=== PATIENT | female | born 1990 | race Caucasian/White ===

== ENCOUNTER 2018-03-23 04:09 | Inpatient (IN) | payer OTHER ==
[~2018-03-23] VITALS: Ht 154.9 cm; Wt 86.2 kg
[~2018-03-23 04:09] MED LIST: PREN1TAB80 PO
[2018-03-23] MEDS ORDERED: LIDOCAINE 1% VIAL ONE (04:29)
[2018-03-23] MEDS ORDERED: LACTATED RINGERS 2,000 ML ONE (04:29)
[2018-03-23] MEDS ORDERED: WATER ONE (04:29)
[2018-03-23] MEDS ORDERED: LR/PITOCIN 1,000 ML IV ONE (04:30)
[2018-03-23] MEDS ORDERED: AMPICILLIN SODIUM ONE (04:38)
[2018-03-23] MEDS ORDERED: SUBLIMAZE ONE (04:39)
[2018-03-23] MEDS ORDERED: NS 100ML 100 ML IV ONE (04:40)
[2018-03-23] MEDS ORDERED: BICITRA PO ONE (05:00)
[2018-03-23] MEDS ORDERED: PHENERGAN IV PRN (05:00)
[2018-03-23] MEDS ORDERED: BENADRYL IV PRN (05:00)
[2018-03-23] MEDS ORDERED: LACTATED RINGERS 1,000 ML IV SCH (05:00)
[2018-03-23] MEDS ORDERED: DEMEROL IV PRN (05:00)
[2018-03-23] MEDS ORDERED: AMPICILLIN SODIUM IV ONE (05:00)
[2018-03-23] MEDS ORDERED: LIDOCAINE 1% VIAL SQ PRN (05:00)
[2018-03-23] MEDS ORDERED: SUBLIMAZE IV PRN (05:00)
[2018-03-23] MEDS ORDERED: PITOCIN ONE (05:03)
--- NOTE | 2018-03-23 05:17 | PCM.HP ---
OB - Chief Complaint & HPI Date of Admission: Date of Admission: Mar 23, 2018 at 04:40 Diagnosis Rupture of membranes Chief Complaint/History : 4 Para: 1 EGA: 38w2d Reason for admission: active labor, rupture of membranes Admission Nurse Assessment Rev: Yes OB - History Hx of Present Care: Good Care (saw Dr. Nino for prenatalcare, we do not have records at this time) Ultrasounds: Normal mid trimester US Obstetrical Complications: None Medical Complications: None Other Concerns: She is Rh negative. Past Family/Social History * Past Medical, Surgical, Family and Obstetric Histories reviewed from chart. Blood Type: O- Rubella: unknown (She was GBS positive in a prior , but is unsure of her current status) RPR/VDRL: Unknown GBS Status: Unknown HBsAG: Unknown OB - Admission Exam Physical Exam Vitals: ABEL: 169/87 HR: 81 SO2: 93 Allergies Coded Allergies Type Severity Reaction Last Updated Verified morphine Allergy Mild GETS RASH 03/29/17 Yes HEENT: Fontanelles Normal, Nasal Mucosa Normal, Eyes non-injected, Oropharynx Normal, PERRLA, Moist Membranes Lungs: Clear, Equal Abdomen: Gravid, Non tender, Soft Extremities: Normal Reflexes: Normal Cervical Dilatation: 10cm Effacement: Other Station: +1 Membranes: Ruptured Amniotic Fluid: Clear Heart Rate: 130's Accelerations: No Accelerations Decelerations: No Decelerations Short Term Variability: Present Retirement Variability: Average (6-25) Contractions on Admission: < 5 Minutes Apart Intensity: Firm Presentation: Cephalic OB - Assessment/Plan Assessment Assessment: active labor Plan Plan: Expectant Management DAO KNIGHT MD Mar 23, 2018 05:17
[2018-03-23 05:30] LABS: HEMOGLOBIN 12.5 g/dL (12.0-15.0); MEAN CELL HGB 31.8 pg (26-34); MEAN CELL HGB CONCENTRATION 33.3 g/dL (33-37); MEAN CORP VOLUME 95.4 fL (78-100); MEAN PLATELET VOLUME 11.6 fL (7.8-11.0); RED CELL DISTRIBUTION WIDTH 13.5 % (11.5-14.5); WHITE BLOOD CELL 12.8 10^3/uL (4.5-11.0)
[2018-03-23] MEDS ORDERED: DERMOPLAST SPRAY TP PRN (05:30)
[2018-03-23] MEDS ORDERED: LR/PITOCIN 500 ML IV ONE ×2 (05:30)
[2018-03-23] MEDS ORDERED: LANOLIN HYDROUS TP PRN (05:30)
[2018-03-23] MEDS ORDERED: MYLANTA PO PRN (05:30)
[2018-03-23] MEDS ORDERED: TYLENOL PO PRN (05:30)
[2018-03-23] MEDS ORDERED: TUCKS TP PRN (05:30)
--- NOTE | 2018-03-23 06:20 | PRM.DELNOT ---
Delivery Summary Delivery: Spont. Vaginal Delivery EBL: 300 Scores: 8/9 Sex of : Male Weight (Grams): 3286 Presentation: Vertex Assessment/Plan Assessment/Plan Patient had uncomplicated vaginal delivery, will proceed with routine care. DAO KNIGHT MD Mar 23, 2018 06:20
[2018-03-23] MEDS: AMPICILLIN IV SCH ×3 (08:00→16:00)
[2018-03-23] MEDS ORDERED: DERMOPLAST SPRAY TP ONE (08:44)
[2018-03-23] MEDS ORDERED: MOTRIN ONE ×2 (08:44→16:40)
[2018-03-23] MEDS ORDERED: TUCKS ONE (08:44)
[2018-03-23] MEDS: MOTRIN PO PRN ×2 (08:52→16:44)
[2018-03-23] MEDS ORDERED: NORCO 5MG PO ONE ×2 (12:13→20:02)
[2018-03-23] MEDS: NORCO 5MG PO PRN ×2 (12:18→20:07)
[2018-03-23] MEDS ORDERED: COLACE PO SCH (21:00)
[2018-03-24] MEDS ORDERED: MOTRIN ONE ×3 (02:59→16:42)
[2018-03-24] MEDS: MOTRIN PO PRN ×3 (03:02→16:46)
[2018-03-24 05:15] LABS: BASOPHIL % 0.2 % (0.0-0.2); EOSINOPHIL # 0.3 10^3/uL (0.0-0.2); HEMOGLOBIN 11.2 g/dL (12.0-15.0); LYMPHOCYTES # 2.7 10^3/uL (1.0-4.8); LYMPHOCYTES % 20.7 % (24.0-44.0); MEAN CELL HGB 31.7 pg (26-34); MEAN CELL HGB CONCENTRATION 32.3 g/dL (33-37); MEAN CORP VOLUME 98.3 fL (78-100); MEAN PLATELET VOLUME 11.8 fL (7.8-11.0); MONOCYTES # 1.3 10^3/uL (0.3-0.8); MONOCYTES % 9.5 % (5.0-12.0); NEUTROPHIL # 8.9 10^3/uL (1.8-7.7); NEUTROPHILS % 67.4 % (41.0-85.0); RED CELL DISTRIBUTION WIDTH 13.7 % (11.5-14.5); WHITE BLOOD CELL 13.2 10^3/uL (4.5-11.0)
--- NOTE | 2018-03-24 08:57 | PRM.PN ---
Subjective/Objective S/P: General: No Complaints Chest: Clear Heart: RRR Abdomen: Uterus Firm/Non-Tender incision: N/A Urine Output: Adequate Extremities: Neg Edema/Neg Homans Vital Signs BP: 117/75 P:76 RR:18 T:98.7 Allergies Coded Allergies Type Severity Reaction Last Updated Verified morphine Allergy Mild GETS RASH 03/29/17 Yes Assessment/Plan Assessment/Plan 27yo PPD1 s/p , doing well. Will continue routine postpatum care, with planned discharge for this afternoon if she is GBS negative. Problems: (1) Vaginal delivery Status: Acute ICD Code: O80 - Encounter for full-term uncomplicated delivery SNOMED: [id number] DAO KNIGHT MD Mar 24, 2018 08:57
[2018-03-24] MEDS ORDERED: IBUP-1131 PO (09:02)
[2018-03-24] MEDS ORDERED: FERR325T15 PO (09:02)
--- NOTE | 2018-03-24 09:03 | PRM.DC ---
OB Discharge Summary Discharge Summary Discharge Diagnosis: Status Post Vitals BP: 117/75 P: 76 RR: 18 T: 98.7 Complications: No Complications Medications: Motrin, Fe Discharge Disposition: Stable Discharge Instructions: Pelvic Rest x 6 Weeks, Clinic F/U 1-2 Weeks, Regular Diet, Regular Activity, Meds as Prescribed, Call for Problems DAO KNIGHT MD Mar 24, 2018 09:03
[2018-03-24] MEDS ORDERED: NORCO 5MG PO ONE (16:42)
[2018-03-24] MEDS: NORCO 5MG PO PRN (16:45)
[2018-03-24] MEDS ORDERED: M-M-R II VACCINE WITH DILUENT SQ ONE ×3 (19:00→19:03)
== END 2018-03-24 20:00 | disposition home or self-care (01) | DRG 560 ==
LOC: ATP 04:09 → LND 04:22 → OBSVTOIN 04:40
PROVIDERS: ADMIT Obstetrics & Gynecology; ATTEND Obstetrics & Gynecology
PROC: 10E0XZZ Delivery of Products of Conception, External Approach (ICD-10-PCS; principal; 2018-03-23)
PROC: 3E0R3BZ Introduction of Anesthetic Agent into Spinal Canal, Percutaneous Approach (ICD-10-PCS; 2018-03-23)
PROC: 00HU33Z Insertion of Infusion Device into Spinal Canal, Percutaneous Approach (ICD-10-PCS; 2018-03-23)
DX: O80 Encounter for full-term uncomplicated delivery (principal); Z37.0 Single live birth; Z3A.38 38 weeks gestation of pregnancy; Z88.5 Allergy status to narcotic agent
CPT/HCPCS: 36415; 59025; 59400; 85025; 85027; 86318; 86870; 86900; G0378; J0290; J2001; J2590; J3010; J7050; J7120; 90707

== ENCOUNTER 2019-06-04 13:13 | Emergency (ER) | payer OTHER ==
[~2019-06-04] VITALS: Ht 154.9 cm; Wt 74.8 kg
[~2019-06-04 13:13] MED LIST changes: +FERR325T15 PO; +IBUP-1131 PO
[2019-06-04 13:22] VITALS: BP 133/84
[2019-06-04 13:38] VITALS: BP 133/84
--- NOTE | 2019-06-04 13:40 | NUR ---
STREP THROAT SWAB OBTAINED AND SENT TO LAB.
--- NOTE | 2019-06-04 13:43 | ER.PDOC ---
General Chief Complaint: Sore Throat Stated Complaint: POSSIBLE STREP Time seen by MD: 13:35 Source: patient Exam Limitations: no limitations History of Present Illness Initial Comments Started today with fever, sore throat, cough with purulent expectoration Timing/Duration: abrupt Severity: moderate Associated Symptoms: fever/chills, runny nose, sinus pain/drainage, sore throat, hoarseness, productive cough Worsen By: deep breathing Allergies: Coded Allergies: morphine (Verified Allergy, Mild, GETS RASH, 03/29/17) MORPHINE GIVEN ON PREVIOUS SHIFT, RASH NOTED AT IV SITE; TESTED IN NEW IV SITE, SAME REACTION. Home Meds Active Scripts Ferrous Sulfate (FERROUS SULFATE) 325 Mg Tablet, 1 TAB PO DAILY for 30 Days, #30 TAB 3 Refills Prov:DAO KNGIHT MD 03/24/18 Ibuprofen (IBUPROFEN) 800 Mg Tablet, 800 MG PO Q6HR PRN for PAIN for 30 Days, #60 TAB Prov:DAO KNIGHT MD 03/24/18 Reported Medications Vit W-Ca,Fe,FA(<1 mg) ( Formula) 1 Each Tablet, 1 EACH PO DAILY, TABLET 03/29/17 Constitutional: chills, fever EENTM: see HPI Respiratory: see HPI All Other Systems: Reviewed and Negative Past Medical History Medical History: no pertinent history Surgical History: no surgical history LMP (females 10-50): 3 weeks Social History Smoking: cigarettes, less than 1 pack/day Alcohol Use: none Drug Use: none Physical Exam General Appearance: alert, no distress Eye: eyes nml inspection, lids & conjunct. nml, PERRL, no nystagmus Ear: ear nml Nose: nose nml Throat: pharynx nml, airway nml Neck: nml inspection, supple Respiratory: rhonchi (scattered) Abdomen: non-tender, no organomegaly CVS: reg rate & rhythm, heart sounds nml Skin: color nml, no rash, warm/dry Extremities: non-tender, nml ROM, no pedal edema NEURO/PSYCH: oriented x 3, CN's nml as tested, motor nml, sensation nml, mood/affect nml Results/Orders Results/Orders Orders - FLORY CHAVEZ MD Strep Screen (06/04/19 13:22) Vital Signs Date Time Temp Pulse Resp B/P (MAP) Pulse Ox O2 Delivery O2 Flow Rate FiO2 06/04/19 13:38 98.3 73 16 133/84 (100) 96 Room Air 06/04/19 13:22 98.3 73 16 96 Room Air 06/04/19 13:22 98.3 73 16 Laboratory Tests Test 06/04/19 13:30 Group A Streptococcus Screen NEGATIVE (NEGATIVE) Departure Time of Disposition: 13:56 Disposition: 01 HOME, SELF-CARE Impression: Primary Impression: Acute sinusitis Condition: Stable Patient Instructions: Sinusitis, [id number] Referrals: PCP,UNKNOWN (PCP) PRIMARY CARE PROVIDER Duration or Time Spent with Pa: 15 FLORY CHAVEZ MD Jun 04, 2019 13:43
--- NOTE | 2019-06-04 14:05 | NUR ---
DISMISSAL PT DISCHARGED IN STABLE CONDITION.
== END 2019-06-04 14:05 | disposition home or self-care (01) ==
LOC: ER 13:13
DX: J01.90 Acute sinusitis, unspecified (principal); F17.210 Nicotine dependence, cigarettes, uncomplicated; Z88.5 Allergy status to narcotic agent; Z79.899 Other long term (current) drug therapy
CPT/HCPCS: 87070; 87880; 99284

== ENCOUNTER 2020-02-26 11:32 | Emergency (ER) | payer OTHER ==
[~2020-02-26] VITALS: Ht 152.4 cm; Wt 70.8 kg
[2020-02-26 11:46] VITALS: BP 141/65
[2020-02-26 11:49] VITALS: BP 141/65
--- NOTE | 2020-02-26 11:49 | NUR ---
ARRIVAL PATIENT ARRIVED TO ED[facility] AMBULATORY,, C/O OF FEVER AND SORE THROAT THAT STARTED TODAY, DID TAKE TYLENOL CREDIT COLLECTIONS REP, WAS ALSO TESTED WITHIN THE LAST MONTH FOR COVID-19 AND HAD A NEGATIVE RESULT, WAS TOLD TODAY SHE NEEDED TO COME TO THE ED FOR EVAL BEFORE GOING BACK TO WORK. PATIENT DENIES SHORTNESS OF BREATH, BODY ACHES, OR NAUSEA AND VOMITING. DOCTOR MIKHAIL NOTIFIED OF PATIENTS ARRIVAL.
[2020-02-26 12:28] VITALS: BP 119/61
--- NOTE | 2020-02-26 12:38 | ER.PDOC ---
General Chief Complaint: Sore Throat Stated Complaint: SORE THROAT/FEVER Time seen by MD: 12:35 Source: patient Exam Limitations: no limitations History of Present Illness Initial Comments Fever and sore throat today. No cough or SOB. Timing/Duration: gradual Associated Symptoms: fever/chills, mod sore throat Severity: moderate Allergies: Coded Allergies: morphine (Verified Allergy, Mild, GETS RASH, 03/29/17) MORPHINE GIVEN ON PREVIOUS SHIFT, RASH NOTED AT IV SITE; TESTED IN NEW IV SITE, SAME REACTION. Home Meds Active Scripts Ferrous Sulfate (FERROUS SULFATE) 325 Mg Tablet, 1 TAB PO DAILY for 30 Days, #30 TAB 3 Refills Prov:DAO KNIGHT MD 03/24/18 Ibuprofen (IBUPROFEN) 800 Mg Tablet, 800 MG PO Q6HR PRN for PAIN for 30 Days, #60 TAB Prov:DAO KNIGHT MD 03/24/18 Reported Medications Vit W-Ca,Fe,FA(<1 mg) ( Formula) 1 Each Tablet, 1 EACH PO DAILY, TABLET 03/29/17 Past Medical History Medical History: no pertinent history Surgical History: no surgical history Social History Alcohol Use: none Drug Use: none Constitutional: see HPI Mouth: no symptoms reported Throat: see HPI Respiratory: no symptoms reported Cardiovascular: no symptoms reported Gastrointestinal: no symptoms reported Musculoskeletal: no symptoms reported All Other Systems: Reviewed and Negative Physical Exam General Appearance: alert, no distress Mouth: lips, gums nml, no drooling, no thrush, membranes nml Throat: pharyngeal erythema, tonsillar exudate, tonsillar swelling Respiratory: no resp. distress, lungs clear CVS: reg. rate & rhythm, heart sounds nml Abdomen: non-tender, no organomegaly Extremities: non-tender, ROM nml Skin Exam: Normal Color, Warm/Dry NEURO/PSYCH: oriented X3, mood/effect nml Results/Orders Results/Orders Orders - DIONE ELIZONDO MD Strep Screen (02/26/20 11:53) Influenza A&B (02/26/20 11:53) Vital Signs Date Time Temp Pulse Resp B/P (MAP) Pulse Ox O2 Delivery O2 Flow Rate FiO2 02/26/20 12:28 98.5 83 18 99 Room Air 02/26/20 11:49 98.5 79 18 99 Room Air 02/26/20 11:46 98.5 79 18 02/26/20 11:46 98.5 79 18 99 Laboratory Tests Test 02/26/20 11:40 Influenza Type A Antigen NEGATIVE (NEG) Influenza B Immunofluorescence NEGATIVE (NEG) Group A Streptococcus Screen NEGATIVE (NEGATIVE) Departure Time of Disposition: 12:36 Disposition: 01 HOME, SELF-CARE Impression: Primary Impression: Acute tonsillitis Qualified Codes: J03.90 - Acute tonsillitis, unspecified Condition: Stable Referrals: PCP,UNKNOWN (PCP) PRIMARY CARE PROVIDER Additional Instructions: Amoxil Ibuprofen Chloraseptic spray OTC as needed for throat pain F/U with your PCP in 1 week Return to ED if worsening symptoms or concerns Duration or Time Spent with Pa: 20 min DIONE ELIZONDO MD Feb 26, 2020 12:38
== END 2020-02-26 12:41 | disposition home or self-care (01) ==
LOC: ER 11:32
DX: J03.90 Acute tonsillitis, unspecified (principal); Z88.5 Allergy status to narcotic agent; Z79.1 Long term (current) use of non-steroidal anti-inflammatories (NSAID)
CPT/HCPCS: 87070; 87804; 87880; 99283

== ENCOUNTER 2021-03-29 15:32 | Emergency (ER) | payer OTHER ==
[~2021-03-29] VITALS: Ht 152.4 cm; Wt 72.6 kg
[2021-03-29 15:42] VITALS: BP 136/84
--- NOTE | 2021-03-29 15:47 | NUR ---
ARRIVAL PATIENT ARRIVED TO ED[facility] AMBULATORY, C/O RIB,CHEST, AND NECK PAIN FOR THE PAST 3 DAYS, DID TAKE TYLENOL AND IBUPROFEN BOOKING AGENT AND IT WAS SUGGESTED PATIENT COME TO THE ED FOR EVAL, DOCTOR MIKHAIL NOTIFIED OF PATIENT'S ARRIVAL.
[2021-03-29] MEDS ORDERED: TORADOL IM STA (16:06)
[2021-03-29] MEDS ORDERED: TORADOL ONE (16:15)
[2021-03-29 16:18] LABS: BASOPHIL % 0.4 % (0.0-0.2); EOSINOPHIL # 0.3 10^3/uL (0.0-0.2); EOSINOPHIL % 2.9 % (0.0-5.0); LYMPHOCYTES # 2.46 10^3/uL1 (1.0-4.8); LYMPHOCYTES % 24.4 % (24.0-44.0); MEAN CORP HGB 31.8 pg (26-34); MONOCYTES # 0.6 10^3/uL (0.3-0.8); MONOCYTES % 5.5 % (5.0-12.0); NEUTROPHIL # 6.7 10^3/uL (1.8-7.7); NEUTROPHILS % 66.5 % (41.0-85.0); PLATELET COUNT 321 10^3/uL (150-400); RED CELL DISTRIBUTION WIDTH 11.8 % (11.5-14.5)
--- NOTE | 2021-03-29 16:21 | PCM.EKG ---
[facility] Test Date: 2021-03-29 Test Time: 16:14:05 Pat Name: RYAN SANCHEZ Department: Patient ID: [facility] [id number] Room: Gender: F Grant Coordinator: JESSICA : 1990 Requested By: DIONE ELIZONDO Order Number: [id number] Reading MD: Dione ELIZONDO Measurements Intervals Swiss Rate: 71 P: 20 WI: 127 QRS: 34 QRSD: 84 T: 31 QT: 381 QTc: 414 Interpretive Statements Sinus rhythm Baseline wander in lead(s) V4 No previous ECG available for comparison Electronically Signed On 03-30-2021 3:35:15 CDT by Dione ELIZONDO Please click the below link to view image of tracing.
--- NOTE | 2021-03-29 16:25 | ER.PDOC ---
General Chief Complaint: General Complaint Stated Complaint: CHEST PAIN,BACK PAIN Time seen by MD: 16:21 Source: patient Exam Limitations: no limitations History of Present Illness Initial Comments Chest pain for 3 days. Pain is located in the anterior chest radiating to back. It is sharp and 6 out of 10. No diaphoresis. No shortness of breath, nausea or vomiting. No cough or congestion. Severity/Quality: moderate, sharp Radiation: back Activities at Onset: none Modifying Factors: movement Nitro Today/Relief: No Nitro Taken Today Aspirin Today: No Aspirin Today Associated Symptoms: denies symptoms Allergies: Coded Allergies: morphine (Verified Allergy, Mild, GETS RASH, 03/29/17) MORPHINE GIVEN ON PREVIOUS SHIFT, RASH NOTED AT IV SITE; TESTED IN NEW IV SITE, SAME REACTION. Home Meds Active Scripts Ferrous Sulfate (FERROUS SULFATE) 325 Mg Tablet, 1 TAB PO DAILY for 30 Days, #30 TAB 3 Refills Prov:DAO KNIGHT MD 03/24/18 Ibuprofen (IBUPROFEN) 800 Mg Tablet, 800 MG PO Q6HR PRN for PAIN for 30 Days, #60 TAB Prov:DAO KNIGHT MD 03/24/18 Reported Medications Vit W-Ca,Fe,FA(<1 mg) ( Formula) 1 Each Tablet, 1 EACH PO DAILY, TABLET 03/29/17 Past Medical History Medical History: no pertinent history Surgical History: no surgical history Family History Significant Family History: no pertinent family hx Social History Alcohol Use: none Drug Use: none Constitutional: no symptoms reported EENTM: no symptoms reported Respiratory: no symptoms reported Cardiovascular: see HPI Gastrointestinal: no symptoms reported Genitourinary: no symptoms reported All Other Systems: Reviewed and Negative Physical Exam General Appearance: No Apparent Distress, WD/WN Neck: Non-Tender, Full Range of Motion, Supple, Normal Inspection Respiratory: lungs clear, normal breath sounds, no respiratory distress, no accessory muscle use, other (Tenderness anterior chest wall and upper back between shoulder blades.) Cardiovascular: Normal Peripheral Pulses, Regular Rate, Rhythm, No Edema, No Gallop, No JVD, No Murmur Gastrointestinal: Normal Bowel Sounds, No Organomegaly, No Pulsatile Mass, Non Tender, Soft Extremities: Normal Range of Motion, Non-Tender, Normal Inspection, No Pedal Edema, No Calf Tenderness, Normal Capillary Refill Neurologic/Psychiatric: police dispatcher II-XII NML as Tested, No Motor/Sensory Deficits, Alert, Normal Mood/Affect, Oriented x 3 Skin: Normal Color, Warm/Dry Lymphatic: No Adenopathy Results/Orders Results/Orders Orders - DIONE ELIZONDO MD Cbc With Auto Diff (03/29/21 16:06) Comprehensive Metabolic Panel (03/29/21 16:06) Creatine Kinase (03/29/21 16:06) Troponin I (03/29/21 16:06) D-Dimer (03/29/21 16:06) Xr Chest 1v (03/29/21 16:06) Ekg-Routine (03/29/21 16:06) Ketorolac Tromethamine (Toradol) (03/29/21 16:06) Ketorolac Tromethamine (Toradol) (03/29/21 16:15) Vital Signs Date Time Temp Pulse Resp B/P (MAP) Pulse Ox O2 Delivery O2 Flow Rate FiO2 03/29/21 16:48 98.5 72 18 124/82 (96) 98 Room Air 03/29/21 15:42 98.5 74 18 03/29/21 15:42 98.5 74 18 98 03/29/21 15:42 98.5 74 18 136/84 (101) 98 Room Air Administered Medications Medications (Trade) Dose Ordered Sig/Callie Route PRN Reason Start Time Stop Time Status Last Admin Dose Admin Ketorolac Tromethamine (Toradol) 60 mg STAT STAT IM 03/29/21 16:06 03/29/21 16:09 DC 03/29/21 16:17 60 MG Laboratory Tests Test 03/29/21 16:14 White Blood Count 10.1 10^3/uL (4.5-11.0) Red Blood Count 4.28 10^6/uL (4.00-5.20) Hemoglobin 13.6 g/dL (12.0-15.0) Hematocrit 42.4 % (36.0-46.0) Mean Corpuscular Volume 99.1 fL (78-100) Mean Corpuscular Hemoglobin 31.8 pg (26-34) Mean Corpuscular Hemoglobin Concent 32.1 g/dL (33-36.5) L Red Cell Distribution Width 11.8 % (11.5-14.5) Platelet Count 321 10^3/uL (150-400) Mean Platelet Volume 10.3 fL (7.8-11.0) Neutrophils (%) (Auto) 66.5 % (41.0-85.0) Lymphocytes (%) (Auto) 24.4 % (24.0-44.0) Monocytes (%) (Auto) 5.5 % (5.0-12.0) Neutrophils # (Auto) 6.7 10^3/uL (1.8-7.7) Lymphocytes # (Auto) 2.46 10^3/uL1 (1.0-4.8) Monocytes # (Auto) 0.6 10^3/uL (0.3-0.8) Absolute Immature Granulocyte (auto 0.03 10^3 u/L (0-2) Absolute Eosinophils (auto) 0.3 10^3/uL (0.0-0.2) H Immature Granulocytes % 0.30 % (0.00-0.50) Eosinophils % 2.9 % (0.0-5.0) Basophils % 0.4 % (0.0-0.2) H Basophils # 0.0 10^3/uL (0.0-0.1) D-Dimer 0.39 mg/L (0.19-0.49) Sodium Level 142 mmol/L (132-145) Potassium Level 4.1 mmol/L (3.6-5.2) Chloride Level 105.0 mmol/L (96-109) Carbon Dioxide Level 25.6 mmol/L (20.0-32) Anion Gap 15.5 Blood Urea Nitrogen 13 mg/dL (7-18) Creatinine 0.78 mg/dL (0.59-1.40) Estimated GFR () 104.9 (>/=60) Est GFR (CKD-EPI)(Non-Afr Ivorian) 86.7 (>/=60) BUN/Creatinine Ratio 16.0 Glucose Level 97 mg/dL (70-110) Calcium Level 8.9 mg/dL (8.4-10.5) Total Bilirubin 0.2 mg/dL (0.2-1.0) Aspartate Amino Transferase (AST) 14 U/L (0-35) Alanine Aminotransferase (ALT) 29 U/L (12-78) Alkaline Phosphatase 71 U/L (50-136) Total Creatine Kinase 74 U/L (26-192) Troponin I < 0.02 ng/mL (0.00-0.05) Total Protein 7.4 g/dL (6.4-8.2) Albumin 3.7 g/dL (3.4-5.0) Globulin 3.7 Albumin/Globulin Ratio 1.000 Progress Progress Patient's pain almost resolved with Toradol shot. Cardiac enzymes, D-dimer, chemistries and CBC unremarkable. Reviewed findings with patient and she voices understanding. EKG/XRAY/CT/US EKG: NSR, no ST T wave changes EKG Comments: HR 71, normal P axis XRAY: chest (No active disease) ER DEPART Departure Time of Disposition: 17:09 Disposition: 01 HOME / SELF CARE / HOMELESS Impression: Primary Impression: Tenderness of chest wall Condition: Improved Referrals: TARA MACIAS MANAGER HV[employer] (PCP) PRIMARY CARE PROVIDER Additional Instructions: Tramadol Flexeril Ibuprofen Follow-up with your PCP in 2 to 3 days Return to ED if worsening symptoms or concerns Duration or Time Spent with Pa: 45 min DIONE ELIZONDO MD Mar 29, 2021 16:25
--- NOTE | 2021-03-29 16:32 | DIREP ---
PROCEDURE:CHEST 1 VIEW COMPARISON:None. INDICATIONS:Chest pain FINDINGS: LUNGS/PLEURA:No significant pulmonary parenchymal abnormalities. No effusion or pneumothorax. VASCULATURE:Normal. Unremarkable pulmonary vasculature. CARDIAC:Normal. No cardiac silhouette abnormality or cardiomegaly. MEDIASTINUM:Normal. No visible mass or adenopathy. BONES:Normal. No fracture or visible bony lesion. OTHER:Negative. CONCLUSION: No acute cardiopulmonary abnormality. Dictated by: Nitish De Dios MD on 03/29/2021 at 04:30 PM
[2021-03-29 16:39] LABS: ALANINE AMINOTRANSFERASE(ML) 29 U/L (12-78); ALKALINE PHOSPHATASE 71 U/L (50-136); ASPARTATE AMINO TRANSFERASE 14 U/L (0-35); CALCIUM 8.9 mg/dL (8.4-10.5); CARBON DIOXIDE 25.6 mmol/L (20.0-32); GLUCOSE 97 mg/dL (70-110)
[2021-03-29 16:48] VITALS: BP 124/82
== END 2021-03-29 17:19 | disposition home or self-care (01) ==
LOC: ER 15:32
DX: R07.89 Other chest pain (principal); Z88.5 Allergy status to narcotic agent
CPT/HCPCS: 36415; 71045; 80053; 82550; 84484; 85025; 85379; 93005; 96372; 99285; J1885